=== PATIENT | female | born 1990 ===

== ENCOUNTER 2024-11-27 09:13 | Day surgery (SDC) | payer OTHER ==
[2024-11-23 14:39] VITALS: BP 104/71
[~2024-11-27] VITALS: Ht 152.4 cm; Wt 65.8 kg
[2024-11-27] MEDS ORDERED: POVIDONE-IODINE 118 ML BOTT TOP ONE (19:00)
== END 2024-11-27 22:10 | disposition home or self-care (01) ==
LOC: CIR.AMB 09:13
PROVIDERS: ATTEND Obstetrics & Gynecology Obstetrics
DX: N93.8 Other specified abnormal uterine and vaginal bleeding (principal)